=== PATIENT | female | born 1950 | race Caucasian/White ===

== ENCOUNTER 2018-01-05 11:21 | Emergency (ER) | payer MEDICARE, OTHER ==
[~2018-01-05 11:21] MED LIST: ALBU18HF IH; AMLO5TAB4 PO; BUDE10.2 IH; CETI10TA22 PO; ESTR30CR VG; LORA10CA PO; MONT10TA6 PO; VARE1TAB21 PO
[2018-01-05 12:28] LABS: BASO % 1 % (0-3); EOS # 0.2 x10^3/uL (0.0-0.7); EOS % 2 % (0-3); HEMATOCRIT 38.8 % (36.0-47.0); HEMOGLOBIN 12.9 g/dL (12.0-15.5); LYMPH # 0.9 x10^3/uL (1.0-4.8); LYMPH % 13 % (24-48); MEAN CORPUSCULAR HEMOGLOBIN 29 pg (25-35); MEAN CORPUSCULAR HGB CONC 33 g/dL (31-37); MEAN CORPUSCULAR VOLUME 87 fL (79-100); MONO # 0.5 x10^3/uL (0.0-1.1); MONO % 6 % (0-9); NEUT # 5.9 x10^3uL (1.8-7.7); NEUT % 78 % (31-73); PLATELET COUNT 284 x10^3/uL (140-400); RED BLOOD COUNT 4.45 x10^6/uL (3.50-5.40); RED CELL DISTRIBUTION WIDTH 15.1 % (11.5-14.5); WHITE BLOOD COUNT 7.5 x10^3/uL (4.0-11.0)
[2018-01-05 12:46] LABS: CALCIUM 8.9 mg/dL (8.5-10.1); CREATININE 0.8 mg/dL (0.6-1.0); GFR 71.3; POTASSIUM 4.1 mmol/L (3.5-5.1)
--- NOTE | 2018-01-05 12:56 | RAD ---
Left wrist radiograph 01/05/2018 Indication: Fall, left wrist deformity. Comparison: None available. Technique: 3 views the left wrist are provided. Findings: There is an impacted, comminuted fracture of the distal radius with apex Irwin angulation. Fracture extends into the radiocarpal joint. There is associated soft tissue swelling. Scaphoid and lunate appear intact. Degenerative changes are noted at the first carpometacarpal articulation. Ulna is intact. Impression: Angulated, comminuted and impacted fracture of the distal radius with extension to the radiocarpal joint.
--- NOTE | 2018-01-05 13:03 | RAD ---
CT head and maxillofacial without contrast 01/05/2018 Indication: Fall, laceration to bottom with Comparison: None available Technique: Multiple axial noncontrast CT images of the head were obtained from the skull base through the vertex. Multiple axial images of the maxillofacial structures were obtained without intravenous contrast. Coronal and sagittal reformats are provided. Findings: The ventricles, sulci and basal cisterns are within normal limits. There is hypoattenuation in the right middle frontal gyrus suggestive of remote infarct. Stephenson-white matter differentiation is normal. There is no acute intracranial hemorrhage. There is no mass, mass effect or midline shift. Posterior fossa is within normal limits. Sellar and suprasellar cistern appear normal. Scalp and calvaria are intact. Orbits are normal in appearance. Globes are spherical and contour. There is mild mucosal thickening of the left maxillary sinus. No acute fracture is identified. The nasal septum is predominantly midline. Nasal bones are intact. The maxilla is intact. The right central maxillary incisor is absent.. Apical lucency is identified involving the left mandibular molars and posterior right maxillary molar. Pterygoid plates are intact. Temporomandibular joints are intact. Mandible is intact. Skull base is intact. Impression: There is no acute intracranial hemorrhage. There is suggestion of remote ischemic changes involving the right middle frontal gyrus. The right central maxillary incisor is absent. Recommend correlation clinically.. Focal lucencies are identified involving the posterior left mandibular molars. PQRS Compliance Statement: One or more of the following individualized dose reduction techniques were utilized for this examination: 1. Automated exposure control 2. Adjustment of the mA and/or kV according to patient size 3. Use of iterative reconstruction technique
--- NOTE | 2018-01-05 13:06 | RAD ---
CT cervical spine without contrast 01/05/2018 Indication: Trauma, fall. Comparison: None available. Technique: Multiple axial CT images of the cervical spine were obtained without intravenous contrast per Findings: Alignment of the cervical spine is normal. Vertebral body heights are maintained. No acute fracture is identified. Skull base is intact. There is mild expansion of the sella turcica, although within normal limits. There is no prevertebral soft tissue swelling. No paraspinal hematoma is identified. Mastoid air cells are well aerated. Middle ear cavity appears normal. Middle ear ossicles are intact. Anterior and posterior arch of C1 is intact. There is mild cervical spondylosis. Mild multilevel facet arthropathy. No significant vertebral joint disease. There is heterogeneity of the right thyroid gland with a right thyroid nodule measuring 10 x 10 mm. Visualized portions of lung apices appear clear. Impression: No acute fracture or malalignment. Right thyroid nodule measures 10 x 10 mm. Nonemergent thyroid ultrasound may be of benefit. PQRS Compliance Statement: One or more of the following individualized dose reduction techniques were utilized for this examination: 1. Automated exposure control 2. Adjustment of the mA and/or kV according to patient size 3. Use of iterative reconstruction technique
--- NOTE | 2018-01-05 13:11 | RAD ---
CT chest without contrast 01/05/2018 Indication: Fall. Severe right-sided pain under breast. Comparison: None available. Technique: Multiple axial CT images of the chest were obtained without intravenous contrast. Coronal and sagittal reformats are provided. Findings: There is heterogeneity of the right thyroid gland with a 10 x 10 mm hypodense right thyroid nodule. There are no pathologically enlarged lymph nodes in the axilla, mediastinum or hilar regions. There is a large hiatal hernia with patulous esophagus which is fluid-filled. Heart size is within normal limits. There is no significant pericardial effusion. Mild to moderate coronary atherosclerotic changes are present. There is subsegmental atelectasis involving the lingula. There is subsegmental atelectasis at the right lung base. There is a 2 mm solid noncalcified pulmonary nodule in the right upper lobe (series 2, image 37). There are no suspicious solid noncalcified pulmonary nodules. No pleural effusions, pulmonary vascular congestion or pneumothorax. No pulmonary contusive changes are identified. There is an 18 mm cyst involving the midpole the left kidney. There is mild fatty atrophy of the pancreas. There is a minimally displaced right anterior sixth rib fracture. Impression: 1. There is a minimally displaced right anterior sixth rib fracture. No pneumothorax. 2. No pulmonary infiltrates are probably contusion. 3. 10 x 10 mm right thyroid nodule. Nonemergent thyroid ultrasound may be of benefit. PQRS Compliance Statement: One or more of the following individualized dose reduction techniques were utilized for this examination: 1. Automated exposure control 2. Adjustment of the mA and/or kV according to patient size 3. Use of iterative reconstruction technique
--- NOTE | 2018-01-05 13:13 | RAD ---
Pelvis radiograph 01/05/2018 Indication: Fall. Comparison: None available. Technique: Single supine view of the pelvis is provided. Findings: Mild degenerative changes of the lumbar spine are visualized. Mild degenerative changes of the sacroiliac joints are noted. There is no diastases of the sacroiliac joints. Sacral sebas are intact. Bowel gas and suspected pessary Limited evaluation of the sacrum. There is superior and inferior pubic rami are intact. Proximal femora are intact. The significant soft tissue abnormality is identified. Nonobstructive bowel gas pattern. Impression: No acute fracture or dislocation.
[2018-01-05] MEDS ORDERED: KETOROLAC 30 MG/ML VIAL. IV ONE (13:15)
--- NOTE | 2018-01-05 13:35 | PHYS DOC ---
Past History Past Medical History: Diabetes, Hypertension Smoking: Cigarettes Adult General Chief Complaint Chief Complaint: WRIST PAIN, fall HPI HPI 67-year-old right-handed female patient states she had an accidental fall from a standing position and landed on her face and left hand and complaining of pain in right side of her chest wall and left wrist pain and deformity and rated her pain 8/10. Patient state she lost a tooth and had laceration of lower lip. Patient denies loss of consciousness. Patient is up-to-date with tetanus immunization Review of Systems Review of Systems Constitutional: Denies fever or chills [] Eyes: Denies change in visual acuity, redness, or eye pain [] HENT: Denies nasal congestion or sore throat [] Respiratory: Denies cough or shortness of breath [] Cardiovascular: No additional information not addressed in HPI [] GI: Denies abdominal pain, nausea, vomiting, bloody stools or diarrhea [] : Denies dysuria or hematuria [] Musculoskeletal: Denies back pain, reports joint pain [] Integument: Denies rash or skin lesions [] Neurologic: Denies headache, focal weakness or sensory changes [] Endocrine: Denies polyuria or polydipsia [] All other systems were reviewed and found to be within normal limits, except as documented in this note. Current Medications Current Medications Current Medications Medications (Trade) Dose Ordered Sig/Lou Start Time Stop Time Status Last Admin Dose Admin Fentanyl Citrate (Fentanyl 2ml Vial) 50 mcg 1X ONCE 01/05/18 11:45 01/05/18 11:51 DC 01/05/18 12:11 50 MCG Ketorolac Tromethamine (Toradol) 30 mg 1X ONCE 01/05/18 13:15 01/05/18 13:16 DC 01/05/18 13:25 30 MG Allergies Allergies Allergies Coded Allergies Type Severity Reaction Last Updated Verified lisinopril Allergy Severe tongue swelling 12/02/13 Yes Penicillins Allergy Intermediate 12/02/13 Yes codeine Allergy Intermediate swelling 12/02/13 Yes Physical Exam Physical Exam Constitutional: Well developed, well nourished, moderate distress, non-toxic appearance. [] HENT: Normocephalic, missing right upper incisor tooth, through to through laceration of lower lip from oral mucosa to upper chin, bilateral external ears normal, oropharynx moist, no oral exudates, nose normal. [] Eyes: PERRLA, EOMI, conjunctiva normal, no discharge. [] Neck: Immobilized in ER with c-collar Cardiovascular:Heart rate regular rhythm, no murmur [] Lungs & Thorax: Right lateral chest wall tenderness without subcutaneous emphysema Abdomen: Bowel sounds normal, soft, no tenderness, no masses, no pulsatile masses. [] Skin: Warm, dry, no erythema, no rash. [] Back: No tenderness, no CVA tenderness. [] Extremities: Left wrist with deformity and tenderness without neurovascular deficit Neurologic: Alert and oriented X 3, normal motor function, normal sensory function, no focal deficits noted. [] Psychologic: Affect normal, judgement normal, mood normal. [] Current Patient Data Lab Results Laboratory Tests Test 01/05/18 12:05 White Blood Count 7.5 x10^3/uL (4.0-11.0) Red Blood Count 4.45 x10^6/uL (3.50-5.40) Hemoglobin 12.9 g/dL (12.0-15.5) Hematocrit 38.8 % (36.0-47.0) Mean Corpuscular Volume 87 fL (79-100) Mean Corpuscular Hemoglobin 29 pg (25-35) Mean Corpuscular Hemoglobin Concent 33 g/dL (31-37) Red Cell Distribution Width 15.1 % (11.5-14.5) H Platelet Count 284 x10^3/uL (140-400) Neutrophils (%) (Auto) 78 % (31-73) H Lymphocytes (%) (Auto) 13 % (24-48) L Monocytes (%) (Auto) 6 % (0-9) Eosinophils (%) (Auto) 2 % (0-3) Basophils (%) (Auto) 1 % (0-3) Neutrophils # (Auto) 5.9 x10^3uL (1.8-7.7) Lymphocytes # (Auto) 0.9 x10^3/uL (1.0-4.8) L Monocytes # (Auto) 0.5 x10^3/uL (0.0-1.1) Eosinophils # (Auto) 0.2 x10^3/uL (0.0-0.7) Basophils # (Auto) 0.0 x10^3/uL (0.0-0.2) Sodium Level 137 mmol/L (136-145) Potassium Level 4.1 mmol/L (3.5-5.1) Chloride Level 101 mmol/L (98-107) Carbon Dioxide Level 29 mmol/L (21-32) Anion Gap 7 (6-14) Blood Urea Nitrogen 13 mg/dL (7-20) Creatinine 0.8 mg/dL (0.6-1.0) Estimated GFR (Cockcroft-Gault) 71.3 Glucose Level 99 mg/dL (70-99) Calcium Level 8.9 mg/dL (8.5-10.1) EKG EKG [] Radiology/Procedures Radiology/Procedures [] [address] [address] IMAGING REPORT Signed PATIENT: HAYDEN BENÍTEZ ACCOUNT: [id number] : 1950 LOCATION: ER AGE: 67 SEX: F EXAM STATUS: REG ER ORD. PHYSICIAN: SOURAV FOSTER MD REASON: fall PROCEDURE: CT CERVICAL SPINE WO CONTRAST CT cervical spine without contrast 01/05/2018 Indication: Trauma, fall. Comparison: None available. Technique: Multiple axial CT images of the cervical spine were obtained without intravenous contrast per Findings: Alignment of the cervical spine is normal. Vertebral body heights are maintained. No acute fracture is identified. Skull base is intact. There is mild expansion of the sella turcica, although within normal limits. There is no prevertebral soft tissue swelling. No paraspinal hematoma is identified. Mastoid air cells are well aerated. Middle ear cavity appears normal. Middle ear ossicles are intact. Anterior and posterior arch of C1 is intact. There is mild cervical spondylosis. Mild multilevel facet arthropathy. No significant vertebral joint disease. There is heterogeneity of the right thyroid gland with a right thyroid nodule measuring 10 x 10 mm. Visualized portions of lung apices appear clear. Impression: No acute fracture or malalignment. Right thyroid nodule measures 10 x 10 mm. Nonemergent thyroid ultrasound may be of benefit. [address] [address] IMAGING REPORT Signed PATIENT: HAYDEN BENÍTEZ ACCOUNT: [id number] : 1950 LOCATION: ER AGE: 67 SEX: F EXAM STATUS: REG ER ORD. PHYSICIAN: SOURAV FOSTER MD REASON: fall PROCEDURE: CT CHEST WO CONTRAST CT chest without contrast 01/05/2018 Indication: Fall. Severe right-sided pain under breast. Comparison: None available. Technique: Multiple axial CT images of the chest were obtained without intravenous contrast. Coronal and sagittal reformats are provided. Findings: There is heterogeneity of the right thyroid gland with a 10 x 10 mm hypodense right thyroid nodule. There are no pathologically enlarged lymph nodes in the axilla, mediastinum or hilar regions. There is a large hiatal hernia with patulous esophagus which is fluid-filled. Heart size is within normal limits. There is no significant pericardial effusion. Mild to moderate coronary atherosclerotic changes are present. There is subsegmental atelectasis involving the lingula. There is subsegmental atelectasis at the right lung base. There is a 2 mm solid noncalcified pulmonary nodule in the right upper lobe (series 2, image 37). There are no suspicious solid noncalcified pulmonary nodules. No pleural effusions, pulmonary vascular congestion or pneumothorax. No pulmonary contusive changes are identified. There is an 18 mm cyst involving the midpole the left kidney. There is mild fatty atrophy of the pancreas. There is a minimally displaced right anterior sixth rib fracture. Impression: 1. There is a minimally displaced right anterior sixth rib fracture. No pneumothorax. 2. No pulmonary infiltrates are probably contusion. 3. 10 x 10 mm right thyroid nodule. Nonemergent thyroid ultrasound [place] [address] IMAGING REPORT Signed PATIENT: HAYDEN BENÍTEZ ACCOUNT: [id number] : 1950 LOCATION: ER AGE: 67 SEX: F EXAM STATUS: REG ER ORD. PHYSICIAN: SOURAV FOSTER MD REASON: fall PROCEDURE: CT HEAD AND MAXILLOFACIAL WO CT head and maxillofacial without contrast 01/05/2018 Indication: Fall, laceration to bottom with Comparison: None available Technique: Multiple axial noncontrast CT images of the head were obtained from the skull base through the vertex. Multiple axial images of the maxillofacial structures were obtained without intravenous contrast. Coronal and sagittal reformats are provided. Findings: The ventricles, sulci and basal cisterns are within normal limits. There is hypoattenuation in the right middle frontal gyrus suggestive of remote infarct. Stephenson-white matter differentiation is normal. There is no acute intracranial hemorrhage. There is no mass, mass effect or midline shift. Posterior fossa is within normal limits. Sellar and suprasellar cistern appear normal. Scalp and calvaria are intact. Orbits are normal in appearance. Globes are spherical and contour. There is mild mucosal thickening of the left maxillary sinus. No acute fracture is identified. The nasal septum is predominantly midline. Nasal bones are intact. The maxilla is intact. The right central maxillary incisor is absent.. Apical lucency is identified involving the left mandibular molars and posterior right maxillary molar. Pterygoid plates are intact. Temporomandibular joints are intact. Mandible is intact. Skull base is intact. Impression: There is no acute intracranial hemorrhage. There is suggestion of remote ischemic changes involving the right middle frontal gyrus. The right central maxillary incisor is absent. Recommend correlation clinically.. Focal lucencies are identified involving the posterior [place] [address] IMAGING REPORT Signed PATIENT: HAYDEN BENÍTEZ ACCOUNT: [id number] : 1950 LOCATION: ER AGE: 67 SEX: F EXAM STATUS: REG ER ORD. PHYSICIAN: SOURAV FOSTER MD REASON: fall PROCEDURE: PELVIS Pelvis radiograph 01/05/2018 Indication: Fall. Comparison: None available. Technique: Single supine view of the pelvis is provided. Findings: Mild degenerative changes of the lumbar spine are visualized. Mild degenerative changes of the sacroiliac joints are noted. There is no diastases of the sacroiliac joints. Sacral sebas are intact. Bowel gas and suspected pessary Limited evaluation of the sacrum. There is superior and inferior pubic rami are intact. Proximal femora are intact. The significant soft tissue abnormality is identified. Nonobstructive bowel gas pattern. Impression: No acute fracture or dislocation. DICTATED AND SIGNED BY: JULIUS DAMICO MD DATE: 01/05/18 1309 CC: MALIK REESE DO; SOURAV FOSTER MD ~ [facility] [address] [place] [id number] IMAGING REPORT Signed PATIENT: HAYDEN BENÍTEZ ACCOUNT: [id number] : 1950 LOCATION: ER AGE: 67 SEX: F EXAM STATUS: REG ER ORD. PHYSICIAN: SOURAV FOSTER MD REASON: fall PROCEDURE: WRIST 3V LEFT Left wrist radiograph 01/05/2018 Indication: Fall, left wrist deformity. Comparison: None available. Technique: 3 views the left wrist are provided. Findings: There is an impacted, comminuted fracture of the distal radius with apex Alex angulation. Fracture extends into the radiocarpal joint. There is associated soft tissue swelling. Scaphoid and lunate appear intact. Degenerative changes are noted at the first carpometacarpal articulation. Ulna is intact. Impression: Angulated, comminuted and impacted fracture of the distal radius with extension to the radiocarpal joint. DICTATED AND SIGNED BY: JULIUS DAMICO MD DATE: 01/05/18 1252 CC: MALIK REESE DO; SOURAV FOSTER MD ~ Course & Med Decision Making Course & Med Decision Making Pertinent Labs and Imaging studies reviewed. (See chart for details) Evolution of patient in ER showed 67-year-old female patient with fall and injury to her face and chest wall and left wrist. Patient had distal radial fracture with deformity. Patient had fentanyl and vomited and didn't want to have any narcotic pain medication. Left wrist splint was placed with traction and manipulation given by me without using any narcotic pain medication with partial improvement of angulation. Oral laceration was repaired with Vicryl and chin laceration was repaired with Dermabond. Patient instructed to quit smoking and follow with on-call orthopedic physician and her primary care physician. Dragon Disclaimer Dragon Disclaimer This electronic medical record was generated, in whole or in part, using a voice recognition dictation system. Departure Departure: Impression: Primary Impression: Right rib fracture Additional Impressions: Fracture of distal end of left radius Laceration of oral cavity Facial laceration Facial contusion Tobacco abuse Tobacco abuse counseling Diabetes mellitus Disposition: 01 HOME, SELF-CARE (At 1551) Condition: IMPROVED Referrals: MALIK REESE DO (PCP) PHOEBE BENSON MD Patient Instructions: Fall Prevention and Home Safety, Mouth Laceration, Rib Fracture, Smoking Cessation, Tips For Success, Soft Tissue Injury of the Neck, [id number], Wrist Fracture Additional Instructions: Drink plenty of liquids Follow-up with your primary care physician in 3-5 days Return to ER if not getting better Scripts Hydrocodone Bit/Acetaminophen (NORCO 5-325 TABLET) 1 Each Tablet 1 TAB PO PRN Q6HRS Y for PAIN, #20 TAB 0 Refills Prov: SOURAV FOSTER MD 01/05/18 Laceration Repair Lac Repair Indication: [oral laceration] Procedure: Laceration of the mucosa in lower lip area was repaired with one suture of Vicryl after local anesthesia with lidocaine. Since presented laceration of chin was repaired with Dermabond. Other Items: [OTHER ITEMS] The patient tolerated the procedure [well]. Complications: [none]. Problem Qualifiers SOURAV FOSTER MD Jan 05, 2018 13:35
[2018-01-05 13:52] VITALS: BP 132/72
[2018-01-05] MEDS ORDERED: IV NORMAL SALINE 500ML 500 ML IV ONE (14:00)
[2018-01-05] MEDS ORDERED: LIDOCAINE 1% Multi-Dose 20 ML VIAL. IJ ONE (14:00)
[2018-01-05] MEDS ORDERED: HYDROmorphone PF 1 MG/ML DISP.SYRIN IV ONE (14:00)
[2018-01-05] MEDS ORDERED: ONDANSETRON PF 4 MG/2 ML VIAL. IV ONE (14:00)
--- NOTE | 2018-01-05 14:44 | RAD ---
Left wrist radiograph 01/05/2018 Indication: Postreduction. Comparison: Left wrist radiograph 01/05/2018. Technique: 3 views the left wrist are provided for Findings: Overlying cast material limits evaluation of fine osseous detail. There is improved AP alignment of the fracture fragments with similar angulation and comminution. Impression: Interval reduction of distal radial fracture with persistent angulation and comminution. There is suggestion of improved AP alignment.
[2018-01-05] MEDS ORDERED: HYDR-971 PO (15:54)
== END 2018-01-05 16:05 | disposition home or self-care (01) ==
LOC: ER 11:21
DX: S52.502A Unspecified fracture of the lower end of left radius, initial encounter for closed fracture (principal); S22.31XA Fracture of one rib, right side, initial encounter for closed fracture; S01.512A Laceration without foreign body of oral cavity, initial encounter; S01.511A Laceration without foreign body of lip, initial encounter; S00.83XA Contusion of other part of head, initial encounter; E11.9 Type 2 diabetes mellitus without complications; I10 Essential (primary) hypertension; F17.210 Nicotine dependence, cigarettes, uncomplicated; Z71.6 Tobacco abuse counseling; Z88.0 Allergy status to penicillin; Z88.5 Allergy status to narcotic agent; Z88.8 Allergy status to other drugs, medicaments and biological substances; W19.XXXA Unspecified fall, initial encounter; Y93.89 Activity, other specified; Y99.8 Other external cause status; Y92.89 Other specified places as the place of occurrence of the external cause
CPT/HCPCS: 12011; 25605; 36415; 70450; 70486; 71250; 72125; 72170; 73110; 80048; 85025; 96361; 96374; 96375; 99285; J1885; J3010; J7040

== ENCOUNTER 2018-01-11 09:48 | Emergency (ER) | payer MEDICARE, OTHER ==
[~2018-01-11] VITALS: Ht 149.9 cm; Wt 69.4 kg
[~2018-01-11 09:48] MED LIST changes: +HYDR-971 PO
[2018-01-11] MEDS ORDERED: IV NORMAL SALINE 1,000ML 1,000 ML IV SCH (10:15)
[2018-01-11] MEDS ORDERED: ONDANSETRON PF 4 MG/2 ML VIAL. IV ONE (10:30)
[2018-01-11 10:32] LABS: BASO # 0.1 x10^3/uL (0.0-0.2); BASO % 0 % (0-3); EOS % 0 % (0-3); HEMATOCRIT 39.3 % (36.0-47.0); HEMOGLOBIN 13.1 g/dL (12.0-15.5); LYMPH # 0.2 x10^3/uL (1.0-4.8); LYMPH % 1 % (24-48); MEAN CORPUSCULAR HEMOGLOBIN 29 pg (25-35); MEAN CORPUSCULAR HGB CONC 33 g/dL (31-37); MEAN CORPUSCULAR VOLUME 86 fL (79-100); MONO # 1.3 x10^3/uL (0.0-1.1); MONO % 6 % (0-9); NEUT # 19.4 x10^3uL (1.8-7.7); NEUT % 93 % (31-73); PLATELET COUNT 322 x10^3/uL (140-400); RED BLOOD COUNT 4.56 x10^6/uL (3.50-5.40); RED CELL DISTRIBUTION WIDTH 15.2 % (11.5-14.5)
--- NOTE | 2018-01-11 10:32 | PHYS DOC ---
Past History Past Medical History: Diabetes, Hypertension Past Surgical History: Tonsillectomy, Other Smoking: Cigarettes Alcohol Use: None Drug Use: None Adult General Chief Complaint Chief Complaint: NAUSEA/VOMITING/DIARRHEA HPI HPI 57-year-old female patient complaining of nausea and vomiting and diarrhea since 2 AM. Patient states she had 3 episodes of vomiting and 2 episodes of diarrhea epigastric pain without radiation as a constant sharp pain and rated her pain 6/10. Patient denies chest pain and shortness of breath and fever and chills and urinary symptom. Patient had an accidental fall on January 05 and seen in this emergency room with unremarkable CT of head and needs and had left wrist and rib #6 fracture and has plan to have of patient surgical treatment for left wrist fracture at . Patient states she did not have any bowel movement since her surgery but denies any abdominal pain and states today for the first time she had diarrhea. She is lethargic and states she did not able to sleep well for the last 6 days. Review of Systems Review of Systems Constitutional: Denies fever or chills [] Eyes: Denies change in visual acuity, redness, or eye pain [] HENT: Denies nasal congestion or sore throat [] Respiratory: Denies cough or shortness of breath [] Cardiovascular: No additional information not addressed in HPI [] GI: Reports abdominal pain, nausea, vomiting, diarrhea [] : Denies dysuria or hematuria [] Musculoskeletal: Denies back pain or joint pain [] Integument: Denies rash or skin lesions [] Neurologic: Denies headache, focal weakness or sensory changes [] Endocrine: Denies polyuria or polydipsia [] All other systems were reviewed and found to be within normal limits, except as documented in this note. Current Medications Current Medications Current Medications Medications (Trade) Dose Ordered Sig/Lou Start Time Stop Time Status Last Admin Dose Admin Ondansetron HCl (Zofran) 4 mg 1X ONCE 01/11/18 10:30 01/11/18 10:31 01/11/18 10:24 4 MG Sodium Chloride 1,000 ml @ 1,000 mls/hr Q1H 01/11/18 10:15 01/11/18 11:14 01/11/18 10:24 1,000 MLS/HR Allergies Allergies Allergies Coded Allergies Type Severity Reaction Last Updated Verified lisinopril Allergy Severe tongue swelling 12/02/13 Yes Penicillins Allergy Intermediate 12/02/13 Yes codeine Allergy Intermediate swelling 12/02/13 Yes Physical Exam Physical Exam Constitutional: Well developed, well nourished, mild distress, non-toxic appearance, lethargic. [] HENT: Normocephalic, atraumatic, bilateral external ears normal, oropharynx dry , no oral exudates, nose normal. [] Eyes: PERRLA, EOMI, conjunctiva normal, no discharge. [] Neck: Normal range of motion, no tenderness, supple, no stridor. [] Cardiovascular:Heart rate regular rhythm, no murmur [] Lungs & Thorax: Bilateral breath sounds clear to auscultation [] Abdomen: Bowel sounds normal, soft, no tenderness, epigastric and right upper quadrant guarding ,no masses, no pulsatile masses. [] Skin: Warm, dry, no erythema, no rash. [] Back: No tenderness, no CVA tenderness. [] Extremities: No tenderness, no cyanosis, no clubbing, ROM intact, no edema. [] Neurologic: Alert and oriented X 3, normal motor function, normal sensory function, no focal deficits noted. [] Psychologic: Affect normal, judgement normal, mood normal. [] Current Patient Data Vital Signs Vital Signs Date Time Temp Pulse Resp B/P (MAP) Pulse Ox O2 Delivery O2 Flow Rate FiO2 01/11/18 10:08 98.2 75 22 97 Room Air EKG EKG [EKG interpreted by me. EKG at 1053 showed sinus bradycardia at rate of 71 without centimeter abnormality] Radiology/Procedures Radiology/Procedures [] [address] [address] IMAGING REPORT Signed PATIENT: HAYDEN BENÍTEZ ACCOUNT: [id number] : 1950 LOCATION: ER AGE: 67 SEX: F EXAM STATUS: REG ER ORD. PHYSICIAN: SOURAV FOSTER MD REASON: nausea and vomiting and upper abdominal pain PROCEDURE: CT ABD PELV W/ IV CONTRST ONLY CT abdomen and pelvis with contrast Indication: UPPER ABDOMINAL PAIN,NAUSEA/VOMTING. fall01/05/18
75MLS OMNI 300 IV CONTRAST
NO PRIORS. . Technique: Intravenous contrast is given. No oral contrast as per request. Comparison:None available Exposure: One or more of the following individualized dose reduction techniques were utilized for this examination: 1. Automated exposure control 2. Adjustment of the mA and/or kV according to patient size 3. Use of iterative reconstruction technique. FINDINGS: Lower thorax: Mild lung base markings likely atelectasis or fibrosis. Pneumoperitoneum:No gross pneumoperitoneum. Liver: Unremarkable Spleen: Unremarkable Pancreas: Fatty atrophy. No acute findings. Adrenals: Unremarkable Kidneys: Low-density left renal lesion measures slightly greater than simple fluid density, 24 Hounsfield units. Measures 22 mm. This may represent a complex or hemorrhagic cyst. Gallbladder: No calcified stone Aorta: Tortuous and ectatic. Small infrarenal abdominal aortic aneurysm, with a saccular morphology. Transverse aortic diameter at this level measures 4.4 cm. There is associated mural plaque. There is more extensive mural plaque at the more inferior aorta, with luminal narrowing. There is some calcification around the patent lumen, could indicate chronic aortic dissection. Lymph nodes: Mildly enlarged aortocaval lymph nodes, up to 15 mm. GI tract: * Mild colonic diverticulosis. * No colonic wall thickening. Minimal stranding within the fat surrounding the descending colon, could indicate mild colitis if of clinical concern. * Moderate hiatal hernia. * No bowel obstruction. Appendix:Visualized, appears within normal limits. Ascites: No gross ascites. Urinary bladder: Not opacified, but no apparent abnormality. Vaginal pessary is noted. Bones: Lumbar spondylosis. Subchondral sclerosis and bone irregularity at the sacroiliac joints, raising the question of sacroiliitis with erosions. This is bilaterally symmetric. IMPRESSION: 1. Small infrarenal abdominal aortic aneurysm, measuring 4.4 cm transverse diameter. Infrarenal aortic mural plaque identified with possible chronic dissection. 2. Mildly hyperdense left renal lesion, may represent a complex or hemorrhagic cyst. Further evaluation could be obtained with nonemergent ultrasound. 3. Mild colonic diverticulosis. Minimal stranding within the fat surrounding the descending colon, uncertain significance but potentially indicative of a mild acute colitis if supported clinically. No gross wall thickening is identified. 4. Subchondral sclerosis and erosive changes at the sacroiliac joints, raising the question of bilateral symmetric sacroiliitis. Electronically signed by: Caleb Martinez MD (01/11/2018 11:49 AM) [facility] DICTATED AND SIGNED BY: CALEB MARTINEZ MD DATE: 01/11/18 1139 CC: MALIK REESE DO; SOURAV FOSTER MD ~ [address] [address] IMAGING REPORT Signed PATIENT: HAYDEN BENÍTEZ ACCOUNT: [id number] : 1950 LOCATION: ER AGE: 67 SEX: F EXAM STATUS: REG ER ORD. PHYSICIAN: SOURAV FOSTER MD REASON: lethargy PROCEDURE: CT HEAD WO CONTRAST EXAM: Head CT without contrast. HISTORY: Fall. Lethargy. TECHNIQUE: Computed tomographic images of the head were obtained without contrast. *One or more of the following individualized dose reduction techniques were utilized for this examination: 1. Automated exposure control. 2. Adjustment of the mA and/or kV according to patient size. 3. Use of iterative reconstruction technique. COMPARISON: 01/05/2018. FINDINGS: There is no acute or subacute extra-axial or intraparenchymal hemorrhage. There is no mass effect or midline shift. There is no hydrocephalus. There are areas of decreased attenuation within the cerebral white matter, nonspecific and likely related to chronic small vessel disease. There is slight increased left frontal extra-axial space due to the vertex likely due to volume loss or a small arachnoid cyst of no clinical significance. There is partial calcification of a pineal cyst, likely of no clinical significance. The visualized portions of the orbits, paranasal sinuses and mastoid air cells are unremarkable. No suspicious calvarial lesion is seen. IMPRESSION: 1. No acute intracranial finding. Note is made that MRI is more sensitive for acute infarction. 2. Subtle areas of hypodensity within the cerebral white matter, likely due to chronic small vessel disease. Electronically signed by: Earline Suarez MD (01/11/2018 11:44 AM) [facility] DICTATED AND SIGNED BY: EARLINE SUAREZ MD DATE: 01/11/18 1141 CC: MALIK REESE DO; SOURAV FOSTER MD ~ [address] [address] IMAGING REPORT Signed PATIENT: HAYDEN BENÍTEZ ACCOUNT: [id number] : 1950 LOCATION: ER AGE: 67 SEX: F EXAM STATUS: REG ER ORD. PHYSICIAN: SOURAV FOSTER MD REASON: leukocytosis PROCEDURE: PORTABLE CHEST 1V EXAM: Chest, single view. HISTORY: Leukocytosis. COMPARISON: CT dated 01/05/2018. FINDINGS: A frontal view of the chest is obtained. There is bilateral basilar atelectasis. The cardiac silhouette is within normal limits in size for portable technique. There is widening of the paratracheal stripe due to slight patient rotation. There is a large hiatal hernia. IMPRESSION: 1. Bilateral basilar atelectasis. 2. Large hiatal hernia. Electronically signed by: Earline Suarez MD (01/11/2018 11:36 AM) [place] [id number] DICTATED AND SIGNED BY: EARLINE SUAREZ MD DATE: 01/11/18 4460 CC: MALIK REESE DO; SOURAV FOSTER MD ~ Course & Med Decision Making Course & Med Decision Making Pertinent Labs studies reviewed. (See chart for details) []Evaluation of patient in ER showed 67-year-old female patient with complaining of nausea and vomiting and diarrhea since 2 a.m. Patient had guarding of epigastric and right upper quadrant with unremarkable CT head and chest x-ray and CT of abdomen and pelvis except for large Hernia. Labs showed white count of 21,000 and lactic acid of 3.0 and patient treated with 2 L of IV fluid and antibiotic after obtaining blood culture. Because of technical problem patient had point of care BMP with bicarbonate of 1 without clinical sign of acidosis. Patient had stable blood pressure and heart rate without fever. Potassium was 2.4 and IV potassium was started. Dr. Humphries on-call hospitalist informed at 1055 and recommended to transfer patient to . Dr. Mcdonnell on-call hospitalist at accepted transfer at 1112. Dragon Disclaimer Dragon Disclaimer This electronic medical record was generated, in whole or in part, using a voice recognition dictation system. Departure Departure: Impression: Primary Impression: Sepsis Additional Impressions: Acute gastroenteritis Hypokalemia Lethargic Elevated lactic acid level Leukocytosis Disposition: XFER SHT-TRM HOSP ( at 11:15) Condition: GUARDED Referrals: MALIK REESE DO (PCP) Critical Care Time Critical care time was [80] minutes exclusive of procedures. Problem Qualifiers SOURAV FOSTER MD Jan 11, 2018 10:32
[2018-01-11 10:41] LABS: HEMOGLOBIN ISTAT 12.9 gm/dL
[2018-01-11 10:43] LABS: POTASSIUM ISTAT 2.4 mmol/L (3.5-5.0)
[2018-01-11] MEDS ORDERED: VANCOMYCIN 1 GM in IV NORMAL SALINE 250ML 250 ML IV ONE (11:00)
[2018-01-11] MEDS ORDERED: IV NORMAL SALINE 1,000ML 1,000 ML IV ONE (11:00)
[2018-01-11] MEDS ORDERED: POTASSIUM CHLORIDE 20MEQ 100 ML IV ONE (11:00)
[2018-01-11 11:08] LABS: INFLUENZA A PATIENT NEGATIVE (NEGATIVE); INFLUENZA B PATIENT NEGATIVE (NEGATIVE)
[2018-01-11] MEDS ORDERED: IOHEXOL 300 MG/ML 75 ML VIAL. IV ONE (11:15)
[2018-01-11 11:19] LABS: % BANDS 14 % (0-9); % LYMPHS 2 % (24-48); % MONOS 11 % (0-10); % SEGS 73 % (35-66); PLT ESTIMATE ADEQUATE (ADEQUATE)
--- NOTE | 2018-01-11 11:19 | EKG ---
[address] [address] Test Date: 2018-01-11 Test Time: 10:53:16 Pat Name: HAYDEN BENÍTEZ Department: Room: Gender: F Spectrographic Analyst: CRISTIANO : 1950 Requested By: SOURAV FOSTER Order Number: [id number] Reading MD: Measurements Intervals Reading Rate: 71 P: 57 SC: 178 QRS: 29 QRSD: 92 T: 7 QT: 418 QTc: 459 Interpretive Statements SINUS RHYTHM NORMAL ECG RI6.01 No previous ECG available for comparison
[2018-01-11] MEDS ORDERED: CONTRAST GIVEN MC PRN (11:30)
[2018-01-11] MEDS ORDERED: VANCOMYCIN 1.75 GM in IV NORMAL SALINE 500ML 500 ML IV ONE (11:30)
[2018-01-11] MEDS ORDERED: POTASSIUM CHLORIDE 10 MEQ in IV NORMAL SALINE 100ML 100 ML IV SCH (11:30)
--- NOTE | 2018-01-11 11:39 | RAD ---
EXAM: Chest, single view. HISTORY: Leukocytosis. COMPARISON: CT dated 01/05/2018. FINDINGS: A frontal view of the chest is obtained. There is bilateral basilar atelectasis. The cardiac silhouette is within normal limits in size for portable technique. There is widening of the paratracheal stripe due to slight patient rotation. There is a large hiatal hernia. IMPRESSION: 1. Bilateral basilar atelectasis. 2. Large hiatal hernia. Electronically signed by: Earline Arciniega MD (01/11/2018 11:36 AM) [place] [id number]
--- NOTE | 2018-01-11 11:47 | RAD ---
EXAM: Head CT without contrast. HISTORY: Fall. Lethargy. TECHNIQUE: Computed tomographic images of the head were obtained without contrast. *One or more of the following individualized dose reduction techniques were utilized for this examination: 1. Automated exposure control. 2. Adjustment of the mA and/or kV according to patient size. 3. Use of iterative reconstruction technique. COMPARISON: 01/05/2018. FINDINGS: There is no acute or subacute extra-axial or intraparenchymal hemorrhage. There is no mass effect or midline shift. There is no hydrocephalus. There are areas of decreased attenuation within the cerebral white matter, nonspecific and likely related to chronic small vessel disease. There is slight increased left frontal extra-axial space due to the vertex likely due to volume loss or a small arachnoid cyst of no clinical significance. There is partial calcification of a pineal cyst, likely of no clinical significance. The visualized portions of the orbits, paranasal sinuses and mastoid air cells are unremarkable. No suspicious calvarial lesion is seen. IMPRESSION: 1. No acute intracranial finding. Note is made that MRI is more sensitive for acute infarction. 2. Subtle areas of hypodensity within the cerebral white matter, likely due to chronic small vessel disease. Electronically signed by: Earline Arciniega MD (01/11/2018 11:44 AM) [facility]
--- NOTE | 2018-01-11 11:51 | RAD ---
CT abdomen and pelvis with contrast Indication: UPPER ABDOMINAL PAIN,NAUSEA/VOMTING. fall01/05/18
75MLS OMNI 300 IV CONTRAST
NO PRIORS. . Technique: Intravenous contrast is given. No oral contrast as per request. Comparison:None available Exposure: One or more of the following individualized dose reduction techniques were utilized for this examination: 1. Automated exposure control 2. Adjustment of the mA and/or kV according to patient size 3. Use of iterative reconstruction technique. FINDINGS: Lower thorax: Mild lung base markings likely atelectasis or fibrosis. Pneumoperitoneum:No gross pneumoperitoneum. Liver: Unremarkable Spleen: Unremarkable Pancreas: Fatty atrophy. No acute findings. Adrenals: Unremarkable Kidneys: Low-density left renal lesion measures slightly greater than simple fluid density, 24 Hounsfield units. Measures 22 mm. This may represent a complex or hemorrhagic cyst. Gallbladder: No calcified stone Aorta: Tortuous and ectatic. Small infrarenal abdominal aortic aneurysm, with a saccular morphology. Transverse aortic diameter at this level measures 4.4 cm. There is associated mural plaque. There is more extensive mural plaque at the more inferior aorta, with luminal narrowing. There is some calcification around the patent lumen, could indicate chronic aortic dissection. Lymph nodes: Mildly enlarged aortocaval lymph nodes, up to 15 mm. GI tract: * Mild colonic diverticulosis. * No colonic wall thickening. Minimal stranding within the fat surrounding the descending colon, could indicate mild colitis if of clinical concern. * Moderate hiatal hernia. * No bowel obstruction. Appendix:Visualized, appears within normal limits. Ascites: No gross ascites. Urinary bladder: Not opacified, but no apparent abnormality. Vaginal pessary is noted. Bones: Lumbar spondylosis. Subchondral sclerosis and bone irregularity at the sacroiliac joints, raising the question of sacroiliitis with erosions. This is bilaterally symmetric. IMPRESSION: 1. Small infrarenal abdominal aortic aneurysm, measuring 4.4 cm transverse diameter. Infrarenal aortic mural plaque identified with possible chronic dissection. 2. Mildly hyperdense left renal lesion, may represent a complex or hemorrhagic cyst. Further evaluation could be obtained with nonemergent ultrasound. 3. Mild colonic diverticulosis. Minimal stranding within the fat surrounding the descending colon, uncertain significance but potentially indicative of a mild acute colitis if supported clinically. No gross wall thickening is identified. 4. Subchondral sclerosis and erosive changes at the sacroiliac joints, raising the question of bilateral symmetric sacroiliitis. Electronically signed by: Caleb Martinez MD (01/11/2018 11:49 AM) [facility]
[2018-01-11 12:03] LABS: ALBUMIN 3.5 g/dL (3.4-5.0); TOTAL BILIRUBIN 1.3 mg/dL (0.2-1.0)
[2018-01-11 12:05] LABS: DIRECT BILIRUBIN 0.2 mg/dL (0.0-0.2)
[2018-01-11 12:09] LABS: TOTAL PROTEIN 6.6 g/dL (6.4-8.2)
[2018-01-11 12:25] VITALS: BP 127/51
[2018-01-11 12:40] LABS: CLARITY,URINE HAZY; COLOR,URINE BROWN
[2018-01-11 12:41] LABS: BACTERIA,URINE FEW /HPF (0-FEW); BILIRUBIN,URINE NEG (NEG); RBC,URINE OCC /HPF (0-2); SQUAMOUS EPITHELIAL CELL,UR FEW /LPF; WBC,URINE OCC /HPF (0-4)
[2018-01-11 12:47] LABS: MAGNESIUM 2.4 mg/dL (1.8-2.4)
--- NOTE | 2018-01-11 14:36 | RAD ---
Limited abdomen ultrasound History: Right upper quadrant pain and vomiting Comparison: None other than CT head earlier the same day Findings: Multiple sonographic images of the abdomen are submitted. Gallbladder is present without intraluminal abnormality, wall thickening, pericholecystic fluid. Hepatic echotexture is within normal limits, no focal hepatic lesion demonstrated. Right lobe of the left liver measured 15.4 cm longitudinal. Pancreas is not well-visualized due to bowel gas. There is segmental visualization of the inferior vena cava. Right kidney measured 10.1 x 5.3 x 5.5 cm, no hydronephrosis. Common bile duct is considered upper limits of normal for patient's age 0.7 cm. Impression: 1. There is no abnormality of the gallbladder. Common bile duct is considered upper limits of normal for patient's age. Electronically signed by: Dionte Moreno MD (01/11/2018 2:33 PM) [facility]
== END 2018-01-11 13:05 | disposition short-term general hospital (02) ==
LOC: ER 09:48
DX: A41.9 Sepsis, unspecified organism (principal); K52.9 Noninfective gastroenteritis and colitis, unspecified; E87.6 Hypokalemia; R74.0 Nonspecific elevation of levels of transaminase and lactic acid dehydrogenase [LDH]; D72.829 Elevated white blood cell count, unspecified; E11.9 Type 2 diabetes mellitus without complications; I10 Essential (primary) hypertension; F17.210 Nicotine dependence, cigarettes, uncomplicated; Z88.0 Allergy status to penicillin; Z88.5 Allergy status to narcotic agent; Z88.8 Allergy status to other drugs, medicaments and biological substances
CPT/HCPCS: 36415; 70450; 71045; 74177; 76705; 80047; 80076; 81001; 83605; 83690; 83735; 84100; 84484; 85007; 85025; 87040; 87804; 93005; 96361; 96374; 99291; 99292; J2405; Q9967; J7030

== ENCOUNTER → 2018-08-27 | Day surgery (SDC) | payer MEDICARE, OTHER ==
[~2018-08-27] MED LIST changes: +ALBUTEROL SULFATE 2.5 MG/3 ML NEBU. NEB PRN; +ALEN70TA5 PO; +ATROPINE 0.5 MG/5 ML DISP.SYRIN. IV PRN; +CALC-30 PO; +CHOL10003 PO; +FLUT1DIS3 IH; +HYDR12.58 PO; +IMIP10TA2 PO; +LIDOCAINE 2% PF Vial for OR 5 ML VIAL. ONE; +NALOXONE 0.4 MG/ML VIAL. IV PRN; +NICO1PAT21 TP; +ONDANSETRON PF 4 MG/2 ML VIAL. IV PRN; +PROPOFOL 40 ML IV ONE; +SERT50TA PO; +TIOT18CA IH
[2018-08-27] MEDS: IV RINGERS SOLUTION,LACTATED 1,000 ML IV SCH (11:36)
[2018-08-27 12:51] VITALS: BP 132/64
--- NOTE | 2018-08-29 14:13 | PATHOLOGY ---
[facility] Accession Number: [id number] . 01 Material submitted: . POLYP AT 15CM . 01 Clinical history: . Hx colon polyps . 02 Diagnosis: Colon biopsies, polyp at 15 cm: - Tubular adenoma. [facility]/08/29/2018 . 02 Comment: There is no high-grade dysplasia or evidence of malignancy. (JPM:[facility] 08/29/2018) . 02 Electronically signed: . Harris Rae MD, Pathologist NPI- [id number] . 01 Gross description: . Received in formalin labeled "Ashley Jesus, polyp at 15 cm," are 2 segments of adame soft tissue measuring 0.9 x 0.3 x 0.3 cm in aggregate dimensions and ranging from 0.4 to 0.5 cm in maximum dimension. The specimen is submitted entirely in cassette A1. ([facility]; 08/28/2018) TOB/TOB . 02 Pathologist provided ICD-10: D12.6 . 02 CPT . 441557 Specimen Comment: A courtesy copy of this report has been sent to Specimen Comment: [phone], . Specimen Comment: Report sent to / DR REESE Specimen Comment: A duplicate report has been generated due to demographic updates. Performed at: 01 [facility] [address], [place] [id number] MD Chris Holley MD Phone: [phone] Performed at: 02 [facility] [address], [place] [id number] MD Harris Rae MD Phone: [phone]
== END | disposition home or self-care (01) ==
LOC: SURG 10:52
PROVIDERS: ATTEND Surgery
DX: Z12.11 Encounter for screening for malignant neoplasm of colon (principal); K57.30 Diverticulosis of large intestine without perforation or abscess without bleeding; K62.1 Rectal polyp; I10 Essential (primary) hypertension; K21.9 Gastro-esophageal reflux disease without esophagitis; Z86.010 Personal history of colon polyps; Z88.0 Allergy status to penicillin; Z88.5 Allergy status to narcotic agent; Z88.8 Allergy status to other drugs, medicaments and biological substances; Z79.899 Other long term (current) drug therapy
CPT/HCPCS: 45380; J2704; J7120; J2001

== ENCOUNTER → 2019-01-05 | Outpatient (CLI) | payer MEDICARE, OTHER ==
[2018-08-27 12:51] VITALS: BP 132/64
[~2019-01-05] MED LIST changes: -ALBU18HF IH; +ALBU2.5V8 IH; -ALBUTEROL SULFATE 2.5 MG/3 ML NEBU. NEB PRN; -ALEN70TA5 PO; +ALEN70TA6 PO; -ATROPINE 0.5 MG/5 ML DISP.SYRIN. IV PRN; +HYDR-3165 PO; -HYDR-971 PO; -LIDOCAINE 2% PF Vial for OR 5 ML VIAL. ONE; -NALOXONE 0.4 MG/ML VIAL. IV PRN; -ONDANSETRON PF 4 MG/2 ML VIAL. IV PRN; -PROPOFOL 40 ML IV ONE
--- NOTE | 2019-01-06 10:26 | RAD ---
Three-view left wrist study Clinical indications: Follow-up after ORIF. Fracture one year ago. COMPARISON: January 05, 2018. Surgical fixation hardware is present within the distal left radius. There is a deformity of distal left radius due to an old healed fracture. No radiolucent acute appearing fracture line or nonhealed fracture line is evident. No lytic process is seen. There is mild dorsal angulation of the radiocarpal articulation. This has improved since the previous study after ORIF. 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 IMPRESSION: Healed distal left radial fracture. Electronically signed by: Jass Levi MD (01/06/2019 10:23 AM) [facility]
== END | disposition home or self-care (01) ==
LOC: RAD 19:59
PROVIDERS: ATTEND Orthopaedic Surgery Sports Medicine
DX: S52.572D Other intraarticular fracture of lower end of left radius, subsequent encounter for closed fracture with routine healing (principal); M19.032 Primary osteoarthritis, left wrist; M21.832 Other specified acquired deformities of left forearm; X58.XXXD Exposure to other specified factors, subsequent encounter
CPT/HCPCS: 73110

== ENCOUNTER → 2019-01-20 | Outpatient (CLI) | payer MEDICARE, OTHER ==
[2018-08-27 12:51] VITALS: BP 132/64
--- NOTE | 2019-01-21 11:08 | RAD ---
CT left upper extremity dated 01/20/2019. Comparison made to plain films dated 01/05/2019. CLINICAL INDICATION: Left hand and wrist pain radiating to thumb. History of prior surgery. TECHNIQUE: Contiguous axial imaging of the left hand and wrist performed with thin cut coronal and sagittal reconstructions. One or more of the following individualized dose reduction techniques were utilized for this examination: 1. Automated exposure control 2. Adjustment of the mA and/or kV according to patient size 3. Use of iterative reconstruction technique FINDINGS: There is deformity of the distal radius consistent with old healed fracture. Volar plate and screws are intact. No radiolucency along the screw margins. No evidence of hardware migration or hardware fracture. There is no definite residual fracture line. There is some cortical irregularity along the articular surface with mild secondary degenerative changes of the radiocarpal articulation. Distal ulna is intact. Ulnar neutral variance. There is severe degenerative change of the scaphotrapezial joint. Mild to moderate degenerative change of the first carpometacarpal joint. There is fusion of the trapezoid and trapezium. There is degenerative change at the triquetral bone near its hamate articulation. A prominent subchondral cyst is noted within the volar aspect of the triquetrum. Images of the hand show mild degenerative change of the interphalangeal joints throughout. No erosive changes or bone destruction. No periostitis. Alignment anatomic. No significant soft tissue abnormality. There is a small effusions at the radiocarpal joint. Possible small effusions at the distal radioulnar joint. No loose body. Flexor and extensor tendons are grossly intact. IMPRESSION: 1. Status post ORIF distal radius fracture with no apparent complication. There is mild secondary degenerative change at the radiocarpal joint. 2. Severe degenerative change of the scaphotrapezial joint. There is fusion of the trapezoid and trapezium bones. 3. Milder degenerative changes of the carpal bones as described. 4. Suspected small effusions at the radiocarpal joint and distal radioulnar joint. Otherwise no apparent soft tissue abnormality. If there is clinical concern for intrinsic wrist ligament tear or TFC tear, MRI could better evaluate. Electronically signed by: Caleb Pedersen MD (01/21/2019 11:05 AM) [facility]
== END | disposition home or self-care (01) ==
LOC: RAD 21:46
PROVIDERS: ATTEND Orthopaedic Surgery Sports Medicine
DX: S52.572D Other intraarticular fracture of lower end of left radius, subsequent encounter for closed fracture with routine healing (principal); M19.042 Primary osteoarthritis, left hand; X58.XXXD Exposure to other specified factors, subsequent encounter
CPT/HCPCS: 73200

== ENCOUNTER → 2020-11-19 | Outpatient (CLI) | payer MEDICARE, OTHER ==
[2018-08-27 12:51] VITALS: BP 132/64
[~2020-11-19] MED LIST changes: -ALEN70TA6 PO; +ALEN70TA71 PO; -CETI10TA22 PO; +CETI10TA74 PO; -MONT10TA6 PO; +MONT10TA80 PO
== END ==
LOC: LAB 08:30
PROVIDERS: ATTEND Nurse Anesthetist, Certified Registered
DX: Z01.812 Encounter for preprocedural laboratory examination (principal); Z20.828 Contact with and (suspected) exposure to other viral communicable diseases; H26.9 Unspecified cataract
CPT/HCPCS: U0003

== ENCOUNTER → 2020-11-23 | Day surgery (SDC) | payer MEDICARE, OTHER ==
[~2020-11-23] MED LIST changes: +BALANCED SALT IRRIG OPHTH SOLN 15 ML BOTTLE. IRR ONE; +CATARACT OPHTH GEL 0.5 ML SYRINGE. OS ONE; +CHONDROIT-SOD-HYALURONATE KIT. OS ONE; +EPINEPHrine AMPULE 0.5 MG in BALANCED SALT IRRIG SOLN PLUS 500 ML IO ONE; +ERYTHROMYCIN 0.5% OPHTH OINTMENT 1GM TUBE. OS ONE; +HYALURONIDASE 75UNITS in LIDOCAINE 2% PF OPHTH 10 ML SYRINGE. OS ONE; +IPRATRPIUM/ALBUTEROL 0.5/2.5MG 3 ML NEBU. NEB PRN; +IV RINGERS SOLUTION,LACTATED 1,000 ML IV SCH; +KETOROLAC TROMETHAMINE 0.5% OPHTH SOLUTION BOTTLE. OS SCH; +MIDAZOLAM HCL PF 2 MG/2 ML VIAL. IV ONE; +MOXIFLOXACIN 0.5% OPHTH SOLUTION 3ML BOTTLE. OS SCH; +ONDANSETRON PF 4 MG/2 ML VIAL. IV PRN; +POVIDONE-IODINE 5% OPHTH SOLUTION 30ML BOTTLE. OS ONE; +PROPOFOL 10,000 MCG/ML (20ML) VIAL IV ONE; +TETRACAINE 0.5% OPHTH SOLUTION 4ML BOTTLE. OS ONE; +TETRACAINE 0.5% OPHTH SOLUTION 4ML BOTTLE. OU ONE; +prednisoLONE ACETATE 1% OPHTH SUSPENSION 5ML BOTTLE. OS SCH
[2020-11-23] MEDS: MOXIFLOXACIN 0.5% OPHTH SOLUTION 3ML BOTTLE. OS SCH ×3 (09:05→09:12)
--- NOTE | 2020-11-23 10:15 | PDOC4 ---
Phaco IOL/Cataract/OS Date of Procedure: Nov 23, 2020 Preoperative Diagnosis: Senile Cataract, Left Eye Postoperative Diagnosis: Senile Cataract, Left Eye Posterior synechiae Anesthesia: Local (Block) with monitored anesthesia care Surgeon: Phoebe Gomez D.O. Procedure: Left Phacoemulsification with Intraocular Lens Implant Lysis of posterior synechiae Findings: Senile Cataract Posterior Synechiae Indications: Worsening vision interfering with patient's lifestyle Narrative: After discussing the risks, complications and alternatives, including but not limited to loss of vision, infection, bleeding, swelling, anesthetic reaction, capsule rupture with vitreous loss, etc., the patient was given a peribulbar block under mild IV sedation and cardiac monitoring. Pressure was applied to the eye for approximately 10 minutes. The patient was transferred to the main operating room and was prepped and draped in the usual sterile fashion and positioned under the microscope. A lid speculum was placed. A temporal clear corneal incision was made with a keratome and viscoelastic was injected into the eye. A side port incision was made. A posterior synechiae was noted from the 5 to 7 o'clock position. This was lysed with a Sinskey hook, allowing for complete pupil dilation. A continuous tear capsulorrhexis was performed, then hydrodissection was accomplished with balanced salt solution. The phacoemulsification needle was placed in the eye and the nucleus was emulsified. The remaining cortical material was removed with the irrigation and aspiration apparatus. The capsule was polished as needed. The posterior capsule was noted to be clean and intact. Viscoelastic was injected into the eye inflating the capsular bag. An intraocular lens was injected into the eye, unfolding as desired and was positioned in the capsular bag. The viscoelastic was aspirated from the eye. The wound edges were hydrated with balanced salt solution and there were no leaks. Viscoelastic was injected over the limbal incisions. Antibiotic and steroid were placed on the eye. The lid speculum was removed, the eye patched shut and a Chavez shield applied. There were no complications and the patient was taken to the PACU in good condition. PHOEBE GOMEZ DO Nov 23, 2020 10:15
[2020-11-23 10:16] VITALS: BP 115/66
== END | disposition home or self-care (01) ==
LOC: SURG 08:37
PROVIDERS: ATTEND Ophthalmology
DX: E11.36 Type 2 diabetes mellitus with diabetic cataract (principal); H25.12 Age-related nuclear cataract, left eye; H21.542 Posterior synechiae (iris), left eye; I10 Essential (primary) hypertension; F17.210 Nicotine dependence, cigarettes, uncomplicated; K21.9 Gastro-esophageal reflux disease without esophagitis; M19.032 Primary osteoarthritis, left wrist; M19.042 Primary osteoarthritis, left hand; Z88.0 Allergy status to penicillin; Z88.5 Allergy status to narcotic agent; Z88.8 Allergy status to other drugs, medicaments and biological substances; Z86.010 Personal history of colon polyps; Z98.890 Other specified postprocedural states
CPT/HCPCS: 65875; 66984; J0171; J2704; V2632

== ENCOUNTER → 2020-12-03 | Outpatient (CLI) | payer MEDICARE, OTHER ==
[2020-11-23 10:16] VITALS: BP 115/66
[~2020-12-03] MED LIST changes: -BALANCED SALT IRRIG OPHTH SOLN 15 ML BOTTLE. IRR ONE; -CATARACT OPHTH GEL 0.5 ML SYRINGE. OS ONE; -CHONDROIT-SOD-HYALURONATE KIT. OS ONE; -EPINEPHrine AMPULE 0.5 MG in BALANCED SALT IRRIG SOLN PLUS 500 ML IO ONE; -ERYTHROMYCIN 0.5% OPHTH OINTMENT 1GM TUBE. OS ONE; -HYALURONIDASE 75UNITS in LIDOCAINE 2% PF OPHTH 10 ML SYRINGE. OS ONE; -IPRATRPIUM/ALBUTEROL 0.5/2.5MG 3 ML NEBU. NEB PRN; -IV RINGERS SOLUTION,LACTATED 1,000 ML IV SCH; -KETOROLAC TROMETHAMINE 0.5% OPHTH SOLUTION BOTTLE. OS SCH; -MIDAZOLAM HCL PF 2 MG/2 ML VIAL. IV ONE; -MOXIFLOXACIN 0.5% OPHTH SOLUTION 3ML BOTTLE. OS SCH; -ONDANSETRON PF 4 MG/2 ML VIAL. IV PRN; -POVIDONE-IODINE 5% OPHTH SOLUTION 30ML BOTTLE. OS ONE; -PROPOFOL 10,000 MCG/ML (20ML) VIAL IV ONE; -TETRACAINE 0.5% OPHTH SOLUTION 4ML BOTTLE. OS ONE; -TETRACAINE 0.5% OPHTH SOLUTION 4ML BOTTLE. OU ONE; -prednisoLONE ACETATE 1% OPHTH SUSPENSION 5ML BOTTLE. OS SCH
== END ==
LOC: LAB 08:15
PROVIDERS: ATTEND Nurse Anesthetist, Certified Registered
DX: Z01.812 Encounter for preprocedural laboratory examination (principal); H26.8 Other specified cataract; Z20.828 Contact with and (suspected) exposure to other viral communicable diseases
CPT/HCPCS: U0003

== ENCOUNTER → 2020-12-07 | Day surgery (SDC) | payer MEDICARE, OTHER ==
[~2020-12-07] MED LIST changes: +BALANCED SALT IRRIG OPHTH SOLN 15 ML BOTTLE. IRR ONE; +CATARACT OPHTH GEL 0.5 ML SYRINGE. OD ONE; +CHONDROIT-SOD-HYALURONATE KIT. OD ONE; +DEXAMETHASONE SOD PHOS 4 MG/ML VIAL. IVP ONE; +DEXAMETHASONE SOD PHOS 4 MG/ML VIAL. ONE; +EPINEPHrine AMPULE 0.5 MG in BALANCED SALT IRRIG SOLN PLUS 500 ML IO ONE; +ERYTHROMYCIN 0.5% OPHTH OINTMENT 1GM TUBE. OD ONE; +HYALURONIDASE 75UNITS in LIDOCAINE 2% PF OPHTH 10 ML SYRINGE. OD ONE; +IPRATRPIUM/ALBUTEROL 0.5/2.5MG 3 ML NEBU. NEB PRN; +IV RINGERS SOLUTION,LACTATED 1,000 ML IV SCH; +KETOROLAC TROMETHAMINE 0.5% OPHTH SOLUTION BOTTLE. OD SCH; +MIDAZOLAM HCL PF 2 MG/2 ML VIAL. IV ONE; +MOXIFLOXACIN 0.5% OPHTH SOLUTION 3ML BOTTLE. OD SCH; +ONDANSETRON PF 4 MG/2 ML VIAL. IV PRN; +POVIDONE-IODINE 5% OPHTH SOLUTION 30ML BOTTLE. OD ONE; +PROPOFOL 10,000 MCG/ML (20ML) VIAL IV ONE; +TETRACAINE 0.5% OPHTH SOLUTION 4ML BOTTLE. OD ONE; +TETRACAINE 0.5% OPHTH SOLUTION 4ML BOTTLE. OU ONE; +prednisoLONE ACETATE 1% OPHTH SUSPENSION 5ML BOTTLE. OD SCH
[2020-12-07] MEDS: MOXIFLOXACIN 0.5% OPHTH SOLUTION 3ML BOTTLE. OD SCH ×3 (09:02→09:13)
--- NOTE | 2020-12-07 10:25 | PDOC4 ---
Phaco IOL/Cataract/OD Date of Procedure: Dec 07, 2020 Preoperative Diagnosis: Preoperative Diagnosis: Senile Cataract, Right Eye Postoperative Diagnosis: Senile Cataract, Right Eye Anesthesia: Local with monitored anesthesia care Surgeon: Phoebe Gomez D.O. Procedure: Right Phacoemulsification with Intraocular Lens Implant Findings: Senile Cataract Indications: Worsening vision interfering with patient's lifestyle Narrative: After discussing the risks, complications and alternatives, including but not limited to loss of vision, infection, bleeding, swelling, anesthetic reaction, capsule rupture with vitreous loss, etc., the patient was given a peribulbar block under mild IV sedation and cardiac monitoring. Pressure was applied to the eye for approximately 10 minutes. The patient was transferred to the main operating room and was prepped and draped in the usual sterile fashion and positioned under the microscope. A lid speculum was placed. A temporal clear corneal incision was made with a keratome and viscoelastic was injected into the eye. A side port incision was made. A continuous tear capsulorrhexis was performed, then hydrodissection was accomplished with balanced salt solution. The phacoemulsification needle was placed in the eye and the nucleus was emulsified. The remaining cortical material was removed with the irrigation and aspiration apparatus. The capsule was polished as needed. The posterior capsule was noted to be clean and intact. Viscoelastic was injected into the eye inflating the capsular bag. An intraocular lens was injected into the eye, unfolding as desired and was positioned in the capsular bag. The viscoelastic was aspirated from the eye. The wound edges were hydrated with balanced salt solution and there were no leaks. Viscoelastic was injected over the limbal incisions. Antibiotic and steroid were placed on the eye. A subconjunctival injection of Decadron 2mg was given inferonasally due to strong history of uveitis. The lid speculum was removed, the eye patched shut and a Chavez shield applied. There were no complications and the patient was taken to the PACU in good condition. PHOEBE GOMEZ DO Dec 07, 2020 10:25
[2020-12-07 10:40] VITALS: BP 116/65
== END | disposition home or self-care (01) ==
LOC: SURG 08:39
PROVIDERS: ATTEND Ophthalmology
DX: E11.36 Type 2 diabetes mellitus with diabetic cataract (principal); H25.11 Age-related nuclear cataract, right eye; I10 Essential (primary) hypertension; E78.00 Pure hypercholesterolemia, unspecified; M19.90 Unspecified osteoarthritis, unspecified site; J45.909 Unspecified asthma, uncomplicated; F17.210 Nicotine dependence, cigarettes, uncomplicated; Z88.0 Allergy status to penicillin; Z79.899 Other long term (current) drug therapy; Z88.5 Allergy status to narcotic agent; Z88.8 Allergy status to other drugs, medicaments and biological substances; Z86.010 Personal history of colon polyps; Z98.890 Other specified postprocedural states
CPT/HCPCS: 66984; J0171; J1100; J2704; V2632

== ENCOUNTER → 2021-07-15 | Outpatient (CLI) | payer MEDICARE, OTHER ==
[~2021-07-15] MED LIST changes: -BALANCED SALT IRRIG OPHTH SOLN 15 ML BOTTLE. IRR ONE; -CATARACT OPHTH GEL 0.5 ML SYRINGE. OD ONE; -CHONDROIT-SOD-HYALURONATE KIT. OD ONE; -DEXAMETHASONE SOD PHOS 4 MG/ML VIAL. IVP ONE; -DEXAMETHASONE SOD PHOS 4 MG/ML VIAL. ONE; -EPINEPHrine AMPULE 0.5 MG in BALANCED SALT IRRIG SOLN PLUS 500 ML IO ONE; -ERYTHROMYCIN 0.5% OPHTH OINTMENT 1GM TUBE. OD ONE; -HYALURONIDASE 75UNITS in LIDOCAINE 2% PF OPHTH 10 ML SYRINGE. OD ONE; -IPRATRPIUM/ALBUTEROL 0.5/2.5MG 3 ML NEBU. NEB PRN; -IV RINGERS SOLUTION,LACTATED 1,000 ML IV SCH; -KETOROLAC TROMETHAMINE 0.5% OPHTH SOLUTION BOTTLE. OD SCH; -MIDAZOLAM HCL PF 2 MG/2 ML VIAL. IV ONE; -MOXIFLOXACIN 0.5% OPHTH SOLUTION 3ML BOTTLE. OD SCH; -ONDANSETRON PF 4 MG/2 ML VIAL. IV PRN; -POVIDONE-IODINE 5% OPHTH SOLUTION 30ML BOTTLE. OD ONE; -PROPOFOL 10,000 MCG/ML (20ML) VIAL IV ONE; -TETRACAINE 0.5% OPHTH SOLUTION 4ML BOTTLE. OD ONE; -TETRACAINE 0.5% OPHTH SOLUTION 4ML BOTTLE. OU ONE; +famotidine PO; -prednisoLONE ACETATE 1% OPHTH SUSPENSION 5ML BOTTLE. OD SCH
[2021-07-20 10:46] VITALS: BP 124/61
== END ==
LOC: LAB 11:26
PROVIDERS: ATTEND Surgery
DX: Z01.812 Encounter for preprocedural laboratory examination (principal); Z12.11 Encounter for screening for malignant neoplasm of colon; Z20.822 Contact with and (suspected) exposure to COVID-19
CPT/HCPCS: C9803; U0003

== ENCOUNTER → 2021-07-20 | Day surgery (SDC) | payer MEDICARE, OTHER ==
[~2021-07-20] MED LIST changes: +CITRIC ACID/SODIUM CITRATE 30 ML SOLUTION. PO ONE; +IPRATRPIUM/ALBUTEROL 0.5/2.5MG 3 ML NEBU. NEB PRN; +IV RINGERS SOLUTION,LACTATED 1,000 ML IV SCH; +LIDOCAINE 2% PF 5 ML VIAL. ONE; +MIDAZOLAM HCL PF 2 MG/2 ML VIAL. IV ONE; +ONDANSETRON PF 4 MG/2 ML VIAL. IV PRN; +PROPOFOL 10,000 MCG/ML (20ML) VIAL IV ONE
--- NOTE | 2021-07-20 09:44 | PDOC1 ---
History of Present Illness Reason for Visit: Colonoscopy History of Present Illness 70-year-old female previously had colon resection for large colonic polyp she returns now for surveillance Allergies: Coded Allergies: lisinopril (Verified Allergy, Severe, tongue swelling, 07/20/21) Penicillins (Verified Allergy, Intermediate, 07/20/21) had a reaction as a child-cannot remember codeine (Verified Allergy, Intermediate, swelling, 07/20/21) Past Medical History Cardiac: HTN, hyperipidemia Pulmonary: COPD GI: GERD Heme/Onc: No pertinent hx Hepatobiliary: No pertinent hx Psych: No pertinent hx Musculoskeletal: No pertinent hx Rheumatologic: No pertinent hx Infectious disease: No pertinent hx ENT: No pertinent hx Renal/: No pertinent hx Endocrine: No pertinent hx Dermatology: No pertinent hx Past Surgical History: Cataract Removal, Tonsillectomy, Colon Resection Family History: No pertinent hx Past Social History Smoke: <1 pack per day Alcohol: rare Drugs: None Lives: with Family Review of Systems Review Of Systems Fourteen system , review of systems has been reviewed. See HPI for pertinent positives and negative responses, other theodore all other systems are negative, non pertinent or non contributory Medications Current Medications Ondansetron HCl (Zofran) 4 mg PRN Q6HRS PRN IV Nausea, 1st Choice; Start 07/20/21 at 08:00; Stop 07/21/21 at 07:59 Albuterol/ Ipratropium (Duoneb) 3 ml 1X PRN PRN NEB Shortness of Breath; Start 07/20/21 at 08:00; Stop 07/21/21 at 07:59 Midazolam HCl (Versed) 2 mg 1X ONCE IV ; Start 07/20/21 at 08:00; Stop 07/20/21 at 08:04; Status DC Lactated Ringer's 1,000 ml @ 125 mls/hr Q8H IV Last administered on 07/20/21at 08:43; Start 07/20/21 at 08:00; Stop 07/20/21 at 19:59 Citric Acid/ Sodium Citrate (Bicitra) 30 ml 1X ONCE PO ; Start 07/20/21 at 09:45; Stop 07/20/21 at 09:46 Active Scripts Active Reported [famotidine] PO BID PRN Calcium 500 + Vit D 400 Tablet (Calcium Carbonate/Vitamin D3) 1 Each Tablet 1 Each PO DAILY Advair 250-50 Diskus (Fluticasone/Salmeterol) 1 Each Disk.w.dev 1 Puff IH BID PRN Spiriva (Tiotropium [place]) 18 Mcg Cap.w.dev 1 Cap IH DAILY Hydrochlorothiazide Tablet (Hydrochlorothiazide) 12.5 Mg Tablet 1 Tab PO DAILY Imipramine Hcl 10 Mg Tablet 10 Mg PO HS Vitamin D3 (Cholecalciferol (Vitamin D3)) 1,000 Unit Tablet 1 Tab PO DAILY Alendronate Sodium 70 Mg Tablet 1 Tab PO WEEKLY Zoloft (Sertraline Hcl) 50 Mg Tablet 50 Mg PO DAILY Zyrtec (Cetirizine Hcl) 10 Mg Tablet 10 Mg PO Singulair Tablet (Montelukast Sodium) 10 Mg Tablet 10 Mg PO Ventolin Hfa Inhaler (Albuterol Sulfate) 18 Gm Hfa.aer.ad 18 Gm IH Norvasc (Amlodipine Besylate) 5 Mg Tablet 5 Mg PO Exam General Appearance: Alert, Oriented X3, Cooperative, No acute distress HEENT: EOMI Respiratory: Clear to auscultation, Normal air movement Heart: Regular rate, No murmurs Abdominal: Normal bowel sounds, Soft, No tenderness Extremities: No edema Skin: No significant lesion Neuro: Normal speech Psych/Mental Status: Mental status NL Assessment/Plan Assessment/Plan History of colon polyps plan colonoscopy surveillance COURSE Allergies Coded Allergies Type Severity Reaction Last Updated Verified lisinopril Allergy Severe tongue swelling 07/20/21 Yes Penicillins Allergy Intermediate 07/20/21 Yes codeine Allergy Intermediate swelling 07/20/21 Yes Current Medications Medications (Trade) Dose Ordered Sig/Lou Route PRN Reason Start Time Stop Time Status Last Admin Dose Admin Ondansetron HCl (Zofran) 4 mg PRN Q6HRS PRN IV Nausea, 1st Choice 07/20/21 08:00 07/21/21 07:59 Albuterol/ Ipratropium (Duoneb) 3 ml 1X PRN PRN NEB Shortness of Breath 07/20/21 08:00 07/21/21 07:59 Midazolam HCl (Versed) 2 mg 1X ONCE IV 07/20/21 08:00 07/20/21 08:04 DC Lactated Ringer's 1,000 ml @ 125 mls/hr Q8H IV 07/20/21 08:00 07/20/21 19:59 07/20/21 08:43 Citric Acid/ Sodium Citrate (Bicitra) 30 ml 1X ONCE PO 07/20/21 09:45 07/20/21 09:46 Orders Procedure Category Date Status Time Vital Signs, Per [facility] 07/20/21 In Process Protocol 08:00 Pulse Oximetry: [facility] 07/20/21 In Process Standing Order 08:00 Academic Assistant [facility] 07/20/21 In Process 08:00 Elevate Head Of Bed [facility] 07/20/21 In Process 08:00 Discharge From [facility] 07/20/21 In Process Hospital 08:00 Ondansetron Pf [facility] 07/20/21 In Process (Zofran) 08:00 Ipratrpium/Albuterol [facility] 07/20/21 In Process 0.5/2.5mg (Duoneb) 08:00 Anesthesia Adult [facility] 07/20/21 In Process Pre-Op Pr 08:00 Midazolam Hcl Pf [facility] 07/20/21 Complete (Versed) 08:00 Vital Signs, Per [facility] 07/20/21 In Process Protocol 08:00 Pulse Ox - [facility] 07/20/21 In Process Intermittent 08:00 Iv Ringers [facility] 07/20/21 In Process Solution,Lactated (Iv 08:00 Citric Acid/Sodium [facility] 07/20/21 In Process Citrate (Bicitra) 09:45 Justification of Admission: Justification of Admission: Justification of Admission Dx: N/A DELFINA SILVA MD Jul 20, 2021 09:44
[2021-07-20 10:46] VITALS: BP 124/61
== END | disposition home or self-care (01) ==
LOC: SURG 08:11
PROVIDERS: ATTEND Surgery
DX: Z12.11 Encounter for screening for malignant neoplasm of colon (principal); Z86.010 Personal history of colon polyps; K57.30 Diverticulosis of large intestine without perforation or abscess without bleeding; I10 Essential (primary) hypertension; E78.5 Hyperlipidemia, unspecified; J44.9 Chronic obstructive pulmonary disease, unspecified; K21.9 Gastro-esophageal reflux disease without esophagitis; M19.90 Unspecified osteoarthritis, unspecified site; F17.210 Nicotine dependence, cigarettes, uncomplicated; Z98.890 Other specified postprocedural states; Z79.899 Other long term (current) drug therapy; Z88.0 Allergy status to penicillin; Z88.8 Allergy status to other drugs, medicaments and biological substances
CPT/HCPCS: C9803; G0105; J2001; J2704; J7120; U0003; 45380